=== PATIENT | female | born 1990 | race African-American/Black ===

== ENCOUNTER 2017-07-05 20:55 | Emergency (ER) | payer SELFPAY | END 2017-07-05 23:59 | disposition home or self-care (01) | LOC: D.ER 20:55 | DX: S05.02XA Injury of conjunctiva and corneal abrasion without foreign body, left eye, initial encounter (principal); S05.01XA Injury of conjunctiva and corneal abrasion without foreign body, right eye, initial encounter; X58.XXXA Exposure to other specified factors, initial encounter; Y93.89 Activity, other specified; Y92.019 Unspecified place in single-family (private) house as the place of occurrence of the external cause; S40.011A Contusion of right shoulder, initial encounter; F17.200 Nicotine dependence, unspecified, uncomplicated ==

== ENCOUNTER 2017-10-12 01:10 | Emergency (ER) | payer SELFPAY | END 2017-10-12 02:15 | disposition home or self-care (01) | LOC: D.ER 01:10 | DX: N76.4 Abscess of vulva (principal); N75.0 Cyst of Bartholin's gland; F17.200 Nicotine dependence, unspecified, uncomplicated ==

== ENCOUNTER 2019-09-21 15:17 | Emergency (ER) | payer SELFPAY ==
[~2019-09-21] VITALS: Ht 149.9 cm; Wt 79.5 kg
[2019-09-21 15:22] VITALS: Ht 149.9 cm; Wt 79.5 kg
[2019-09-21] MEDS ORDERED: SMZ-TMP DS 800-1 TAB PO (15:34)
[2019-09-21] MEDS ORDERED: KEFLEX500 MG PO (15:34)
[2019-09-21 15:44] VITALS: BP 132/74
== END 2019-09-21 15:45 | disposition home or self-care (01) ==
LOC: D.ER 15:17
DX: L73.1 Pseudofolliculitis barbae (principal)